=== PATIENT | male | born 1995 | race Two or more races ===

== ENCOUNTER 2024-01-10 18:23 | Emergency (ER) | payer MEDICAID ==
[~2024-01-10] VITALS: Ht 177.8 cm; Wt 102.1 kg
[2024-01-10] MEDS ORDERED: CEFTRIAXONE 500 MG VIAL ONE (19:34)
[2024-01-10] MEDS ORDERED: DOXYCYCLINE HYCLATE (100 MG) 100 MG TABLET ONE (19:34)
[2024-01-10] MEDS ORDERED: LIDOCAINE /MPF 1% VIAL 5 ML VIAL ONE (19:38)
[2024-01-10] MEDS: DOXYCYCLINE HYCLATE (100 MG) 100 MG TABLET PO ONE (19:39)
[2024-01-10] MEDS ORDERED: ACYC-108 PO (19:39)
[2024-01-10] MEDS: CEFTRIAXONE 500 MG VIAL IM ONE (19:39)
[2024-01-10] MEDS ORDERED: DOXY100T2 PO (19:39)
[2024-01-10 19:53] VITALS: BP 120/66; TEMP 98; O2SAT 97
[2024-01-10 20:07] LABS: APPEARANCE,URINE SLIGHTLY CLOUDY (CLEAR); BILIRUBIN,URINE NEGATIVE (NEGATIVE); BLOOD, URINE NEGATIVE Ery/uL (NEGATIVE); COLOR,URINE YELLOW (YELLOW); KETONES,URINE NEGATIVE (NEGATIVE); LEUKOCYTE ESTERASE ,URINE NEGATIVE (NEGATIVE); NITRITE, URINE NEGATIVE (NEGATIVE); PROTEIN,URINE NEGATIVE (NEGATIVE); UGLUCOSE NEGATIVE (NEGATIVE); UROBILINOGEN,URINE 0.2 EU/dL (0.2)
[2024-01-10 20:22] LABS: ADD URINE CULTURE NO; BACTERIA,URINE RARE /HPF (None Seen); CALCIUM OXALATE CRYSTALS,UR Few /HPF (None Seen); RBC,URINE 0-2 /HPF (0-2); SQUAMOUS EPITHELIAL CELL,UR 0-2 /HPF (None Seen); WBC,URINE 0-2 /HPF (0-3)
[2024-01-12 19:08] LABS: CHLAMYDIA TRACHOMATIS NAA Negative (Negative); NEISSERIA GONORRHOEAE NAA Negative (Negative)
[2024-01-13 22:09] LABS: *HSV 1 DNA PCR Negative (Negative); *HSV 2 DNA PCR Negative (Negative)
== END 2024-01-10 19:54 | disposition home or self-care (01) ==
LOC: ER 18:23
DX: Z11.3 Encounter for screening for infections with a predominantly sexual mode of transmission (principal)
CPT/HCPCS: 99283; 96372; 81001; 87529; 87491; 87591; J0696; J3490; 36415